=== PATIENT | female | born 1975 | race Two or more races ===

== ENCOUNTER 2021-05-01 19:53 | Emergency (ER) | payer OTHER ==
[~2021-05-01] VITALS: Ht 152.4 cm; Wt 88.9 kg
[2021-05-01] MEDS ORDERED: SYNTHROID75 MCG PO (20:25)
[2021-05-01] MEDS ORDERED: BISOPROLOL-HCT1 EAC1 PO (20:25)
[2021-05-01] MEDS ORDERED: SKELAXIN800 MG PO (23:27)
[2021-05-01] MEDS ORDERED: NAPROXEN375 MG PO (23:27)
== END 2021-05-01 23:32 | disposition home or self-care (01) ==
LOC: ER 19:53
DX: R10.31 Right lower quadrant pain (principal); M54.5 Low back pain